=== PATIENT | female | born 1945 | race Asian ===

== ENCOUNTER 2018-07-31 12:08 | Outpatient (CLI) | payer OTHER | END 2018-07-31 22:58 | disposition home or self-care (01) | LOC: RAD 12:08 | DX: M25.462 Effusion, left knee (principal) ==

== ENCOUNTER 2018-08-24 13:36 | Outpatient (CLI) | payer OTHER | END 2018-08-24 20:06 | disposition home or self-care (01) | LOC: RAD 13:36 | DX: M54.5 Low back pain (principal) ==

== ENCOUNTER 2020-09-06 09:40 | Outpatient (CLI) | payer OTHER | END 2020-09-06 19:53 | disposition home or self-care (01) | LOC: INF 09:40 | PROVIDERS: ATTEND Internal Medicine | DX: Z23 Encounter for immunization (principal) | CPT/HCPCS: 96372 ==

== ENCOUNTER 2020-09-26 09:38 | Outpatient (CLI) | payer OTHER | END 2020-09-26 20:13 | disposition home or self-care (01) | LOC: INF | PROVIDERS: ATTEND Internal Medicine | DX: Z23 Encounter for immunization (principal) | CPT/HCPCS: 96372 ==